=== PATIENT | female | born 1995 | race Caucasian/White ===

== ENCOUNTER 2018-07-26 17:09 | Emergency (ER) | payer MEDICAID, SELFPAY ==
[2018-07-26 17:20] VITALS: BP 120/96; PULSE 67; RESP 16; TEMP 36.9; O2SAT 100
--- NOTE | 2018-07-26 17:44 | W.ED.GENAD ---
Discharge Plan Disposition Patient Disposition: HOME Condition: Stable Discharge Details Chief Complaint: Laceration Clinical Impression: Avulsion of skin ED Provider: Dinesh Yoder Home Meds and New Rx's Prescriptions: No Action No Known Home Meds RF: 0 Discharge Instructions Instructions: Skin Avulsion (ED) Additional Instructions: if redness spreads up the foot or you have severe pain return to the emergency department you can take 1000mg tylenol and 600mg ibuprofen every 6 hours for pain as needed Discharge Data Discharge Physician: Dinesh Yoder Medical Decision Making [facility] Narrative Medical decision making narrative: Patient here after she was working in a garden and hit her left IV toe with a hoe. Denies other injuries or falling. The distal tip is avulsed and not deep enough to need sutures, will close with skin adhesive to help decrease secretions. No bone involvement or severe pain so doubt fracture and do not feel xrays indicated Differential Diagnosis left IV toe injury HPI - General Adult General Mode of arrival: ambulatory. Date/Time Provider Initiated Documentation: 07/26/18 17:34. Limitations to Documentation: no limitations. Information obtained by: patient. History of Present Illness 23 year old F presents to the emergency department with the chief complaint of left IV toe laceration, described as mild, with intensity rated at 3. Quality is described as sharp, and is localized to the left and lower extremity. Patient reports no radiation. Patient started experiencing this hour(s) (1) and it has been constant. Rest improves symptom(s), Movement worsens symptoms . Patient notes no other symptoms.. Patient did receive the following treatments prior to arrival, none Related Data Home Medications Medication Instructions Recorded Confirmed Unknown [No Known Home Meds] 07/26/18 07/26/18 Allergies Allergy/AdvReac Type Severity Reaction Status Date / Time No Known Allergies Allergy Unverified 07/26/18 17:22 General Stated Complaint: Laceration TOSHIA: 4 Review of Systems Review of Systems All systems reviewed & are unremarkable except as noted in HPI and below Constitutional Denies chills, Denies fever(s) and Denies weakness Eyes Patient Denies loss of vision ENT Denies change in voice Cardiovascular Denies chest pain and Denies dyspnea Respiratory Denies dyspnea Gastrointestinal Denies abdominal pain, Denies nausea and Denies vomiting Genitourinary Denies dysuria Musculoskeletal Denies joint swelling Integumentary/Breasts Denies rash Neurologic Denies loss of vision and Denies weakness Psychiatric Denies depression Endocrine Denies cold intolerance and Denies heat intolerance Allergic/Immunologic Reports urticaria Exam Const General: no acute distress Orientation: alert [facility] Head: normal to inspection Ears: external ears normal General nose exam: external nose normal Mouth: moist mucous membranes Eyes General: appearance normal, both eyes and all related structures Neck Neck: normal visual inspection Resp Effort & Inspection: normal respiratory effort and able to speak in complete sentences Cardio Rate: regular rate Skin General skin exam: no rashes or lesions noted Neuro General: alert and oriented x3 Extrem General: other (on the left IV distal toe there is a distal avulsion involving the distal nail bed and is about 1cm in length, no bone involvement, no severe pain with palpation) Psych Mental Status: mental status grossly normal Course Vital Signs Temperature 36.9 C 07/26/18 17:20 Pulse 67 07/26/18 17:20 Respiratory Rate 16 07/26/18 17:20 Blood Pressure 120/96 H 07/26/18 17:20 Pulse Oximetry 100 07/26/18 17:20 Temperature 36.9 C 07/26/18 17:20 Pulse 67 07/26/18 17:20 Respiratory Rate 16 07/26/18 17:20 Blood Pressure 120/96 H 07/26/18 17:20 Pulse Oximetry 100 07/26/18 17:20
--- NOTE | 2018-07-26 17:50 | ED.GENADUL_ITS ---
Discharge Plan Disposition Patient Disposition: HOME Condition: Stable Discharge Details Chief Complaint: Laceration Clinical Impression: Avulsion of skin ED Provider: Dinesh Yoder Home Meds and New Rx's Prescriptions: No Action No Known Home Meds RF: 0 Discharge Instructions Instructions: Skin Avulsion (ED) Additional Instructions: if redness spreads up the foot or you have severe pain return to the emergency department you can take 1000mg tylenol and 600mg ibuprofen every 6 hours for pain as needed Discharge Data Discharge Physician: Dinesh Yoder Medical Decision Making [facility] Narrative Medical decision making narrative: Patient here after she was working in a garden and hit her left IV toe with a hoe. Denies other injuries or falling. The distal tip is avulsed and not deep enough to need sutures, will close with skin adhesive to help decrease secretions. No bone involvement or severe pain so doubt fracture and do not feel xrays indicated Differential Diagnosis left IV toe injury HPI - General Adult General Mode of arrival: ambulatory . Date/Time Provider Initiated Documentation: 07/26/18 17:34 . Limitations to Documentation: no limitations . Information obtained by: patient . History of Present Illness 23 year old F presents to the emergency department with the chief complaint of left IV toe laceration, described as mild, with intensity rated at 3. Quality is described as sharp, and is localized to the left and lower extremity. Patient reports no radiation. Patient started experiencing this hour(s) (1) and it has been constant. Rest improves symptom(s), Movement worsens symptoms . Patient notes no other symptoms.. Patient did receive the following treatments prior to arrival, none Related Data Home Medications Medication Instructions Recorded Confirmed Unknown [No Known Home Meds] 07/26/18 07/26/18 Allergies Allergy/AdvReac Type Severity Reaction Status Date / Time No Known Allergies Allergy Unverified 07/26/18 17:22 General Stated Complaint: Laceration TOSHIA: 4 Review of Systems Review of Systems All systems reviewed & are unremarkable except as noted in HPI and below Constitutional Denies chills, Denies fever(s) and Denies weakness Eyes Patient Denies loss of vision ENT Denies change in voice Cardiovascular Denies chest pain and Denies dyspnea Respiratory Denies dyspnea Gastrointestinal Denies abdominal pain, Denies nausea and Denies vomiting Genitourinary Denies dysuria Musculoskeletal Denies joint swelling Integumentary/Breasts Denies rash Neurologic Denies loss of vision and Denies weakness Psychiatric Denies depression Endocrine Denies cold intolerance and Denies heat intolerance Allergic/Immunologic Reports urticaria Exam Const General: no acute distress Orientation: alert [facility] Head: normal to inspection Ears: external ears normal General nose exam: external nose normal Mouth: moist mucous membranes Eyes General: appearance normal, both eyes and all related structures Neck Neck: normal visual inspection Resp Effort & Inspection: normal respiratory effort and able to speak in complete sentences Cardio Rate: regular rate Skin General skin exam: no rashes or lesions noted Neuro General: alert and oriented x3 Extrem General: other (on the left IV distal toe there is a distal avulsion involving the distal nail bed and is about 1cm in length, no bone involvement, no severe pain with palpation) Psych Mental Status: mental status grossly normal Course Vital Signs Temperature 36.9 C 07/26/18 17:20 Pulse 67 07/26/18 17:20 Respiratory Rate 16 07/26/18 17:20 Blood Pressure 120/96 H 07/26/18 17:20 Pulse Oximetry 100 07/26/18 17:20 Temperature 36.9 C 07/26/18 17:20 Pulse 67 07/26/18 17:20 Respiratory Rate 16 07/26/18 17:20 Blood Pressure 120/96 H 07/26/18 17:20 Pulse Oximetry 100 07/26/18 17:20
== END 2018-07-26 18:05 | disposition home or self-care (01) ==
PROVIDERS: Emergency Provider Emergency Medicine
DX: S91.205A Unspecified open wound of left lesser toe(s) with damage to nail, initial encounter (principal); W22.8XXA Striking against or struck by other objects, initial encounter; Y93.H2 Activity, gardening and landscaping
CPT/HCPCS: 12001